=== PATIENT | female | born 1985 | race Caucasian/White ===

== ENCOUNTER 2017-12-18 20:32 | Emergency (ER) | payer BC ==
[2017-12-18] MEDS ORDERED: Ondansetron 4 MG/2 ML SDV IVPUSH ONE (21:11)
[2017-12-18] MEDS ORDERED: Sodium Chloride 0.9% 1,000 ML IV ONE (21:11)
--- NOTE | 2017-12-18 21:12 | EDM.PDOC ---
ED HPI GENERAL MEDICAL PROBLEM - General Chief Complaint: Genitourinary Problem Stated Complaint: BACK PAIN VOMMITTING POSSIBLE KIDNEY INFECTION Time Seen by Provider: 12/18/17 21:00 Source of Information: Reports: Patient History Limitations: Reports: No Limitations - History of Present Illness INITIAL COMMENTS - FREE TEXT/NARRATIVE: Monica is a 32yo female who presents tonight with low back pain, chills, subjective fevers, nausea. LBP started 4 days ago, today she has been nauseated and vomited x 2. She has had urinary frequency and pressure/pain sensation to low abdomen over her bladder area. She has had loose stools today. She is prone to "kidney infections" and has been hospitalized for these in the past. She is concerned that she may have a kidney infection again and came to ER tonight. She feels "so dry" and "dehydrated". She has hx of depression, stable and medicated. No other medical history. Abdominal surgeries include "tummy tuck". NKDA Onset: Gradual Duration: Day(s): (4), Getting Worse Location: Reports: Abdomen Improves with: Reports: None Worsens with: Reports: None Associated Symptoms: Reports: Fever/Chills, Headaches, Loss of Appetite, Nausea/ Vomiting. 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: Acetaminophen Back Pain Score (Numeric/FACES): 6 - Related Data Allergies Allergy/AdvReac Type Severity Reaction Status Date / Time No Known Allergies Allergy Verified 12/18/17 20:43 Home Meds: Home Meds FLUoxetine [PROzac] 60 mg PO DAILY 12/18/17 [History] Past Medical History Gastrointestinal History: Reports: Other (See Below) Other Gastrointestinal History: tummy tuck - Past Surgical History HEENT Surgical History: Reports: Oral Surgery, Tonsillectomy GI Surgical History: Reports: Other (See Below) Other GI Surgeries/Procedures: hemmoroid surgery Social & Family History - Tobacco Use Smoking Status *Q: Never Smoker - Caffeine Use Caffeine Use: Reports: Coffee, Energy Drinks, Soda, Tea - Recreational Drug Use Recreational Drug Use: No ED ROS GENERAL - Review of Systems Review Of Systems: See Below Constitutional: Reports: Chills, Fatigue, Diaphoresis HEENT: Reports: No Symptoms Respiratory: Reports: No Symptoms. Denies: Shortness of Breath, Cough Cardiovascular: Reports: No Symptoms. Denies: Chest Pain, Palpitations GI/Abdominal: Reports: Abdominal Pain (lower), Diarrhea (today), Nausea, Vomiting (x 2 today). Denies: Black Stool, Bloody Stool, Constipation : Reports: Flank Pain (bilateral - "I can't really tell if it is on one side") , Frequency, Other (LMP: unknown as she got her nexplanon out 2 months ago, spotting intermittently with nexplanon in. Not sexually active). Denies: Discharge, Dysuria, Hematuria, Urgency, Urinary Retention Musculoskeletal: Reports: Back Pain Neurological: Reports: Headache. Denies: Confusion, Dizziness, Numbness, Tingling Psychiatric: Reports: No Symptoms ED EXAM, RENAL/ - Physical Exam Exam: See Below Exam Limited By: No Limitations General Appearance: Alert, WD/WN, No Apparent Distress Eye Exam: Bilateral Eye: EOMI, PERRL Ears: Normal External Exam, Hearing Grossly Normal Nose: Normal Inspection Throat/Mouth: Normal Inspection, Normal Lips, Normal Teeth, Normal Voice, No Airway Compromise Head: Atraumatic, Normocephalic Neck: Normal Inspection Respiratory/Chest: No Respiratory Distress, Lungs Clear, Normal Breath Sounds Cardiovascular: Regular Rate, Rhythm, No Edema GI/Abdominal: Normal Bowel Sounds, Soft, Tender (mild to lower abdomen). No: Guarding, Rigid, Rebound (Female) Exam: Deferred Rectal (Female) Exam: Deferred Back Exam: No: CVA Tenderness (L), CVA Tenderness (R) Extremities: Normal Inspection, No Pedal Edema, Normal Capillary Refill Neurological: Alert, Oriented, CN II-XII Intact, Normal Cognition Psychiatric: Normal Affect, Normal Mood Skin Exam: Warm, Dry, Intact Course - Vital Signs Last Recorded V/S: Last Vital Signs Temp 98.7 F 12/18/17 20:40 Pulse 82 12/18/17 20:40 Resp 20 12/18/17 20:40 BP 136/75 12/18/17 20:40 Pulse Ox 100 12/18/17 20:40 - Orders/Labs/Meds Orders: Active Orders 24 hr Category Date Time Status UA W/MICROSCOPIC [URIN] Stat Lab 12/18/17 20:35 Ordered Labs: Laboratory Tests 06/29/18 06/29/18 06/29/18 Range/Units 20:35 21:20 21:20 WBC 12.38 H (3.98-10.04) K/mm3 RBC 4.63 (3.98-5.22) M/mm3 Hgb 13.9 (11.2-15.7) gm/L Hct 41.9 (34.1-44.9) % MCV 90.5 (79.4-94.8) fl MCH 30.0 (25.6-32.2) pg MCHC 33.2 (32.2-35.5) g/dl RDW Std Deviation 42.8 (36.4-46.3) fL Plt Count 308 (182-369) K/mm3 MPV 10.9 (9.4-12.3) fl Neut % (Auto) 63.3 (34.0-71.1) % Lymph % (Auto) 22.5 (19.3-51.7) % [place] % (Auto) 10.3 (4.7-12.5) % Eos % (Auto) 3.5 (0.7-5.8) Baso % (Auto) 0.2 (0.1-1.2) % Neut # (Auto) 7.82 H (1.56-6.13) K/mm3 Lymph # (Auto) 2.79 (1.18-3.74) K/mm3 [place] # (Auto) 1.28 H (0.24-0.36) K/mm3 Eos # (Auto) 0.43 H (0.04-0.36) K/mm3 Baso # (Auto) 0.03 (0.01-0.08) K/mm3 Sodium 138 (136-145) mEq/L Potassium 4.2 (3.5-5.1) mEq/L Chloride 103 (98-107) mEq/L Carbon Dioxide 27 (21-32) mEq/L Anion Gap 12.2 (5-15) BUN 10 (7-18) mg/dL Creatinine 0.8 (0.55-1.02) mg/dL Est Cr Clr Drug Dosing 99.99 mL/min Estimated GFR (MDRD) > 60 (>60) mL/min BUN/Creatinine Ratio 12.5 L (14-18) Glucose 91 (74-106) mg/dL Calcium 9.0 (8.5-10.1) mg/dL Total Bilirubin 0.3 (0.2-1.0) mg/dL AST 21 (15-37) U/L ALT 32 (14-59) U/L Alkaline Phosphatase 73 (46-116) U/L Total Protein 7.5 (6.4-8.2) g/dl Albumin 3.7 (3.4-5.0) g/dl Globulin 3.8 gm/dL Albumin/Globulin Ratio 1.0 (1-2) Urine Color Light yellow (Yellow) Urine Appearance Clear (Clear) Urine pH 7.5 (5.0-8.0) Ur Specific [place] 1.015 (1.005-1.030) Urine Protein Negative (Negative) Urine Glucose (UA) Negative (Negative) Urine Ketones Negative (Negative) Urine Occult Blood Negative (Negative) Urine Nitrite Negative (Negative) Urine Bilirubin Negative (Negative) Urine Urobilinogen 0.2 (0.2-1.0) Ur Leukocyte Esterase Negative (Negative) Urine RBC Not seen (0-5) /hpf Urine WBC 0-5 (0-5) /hpf Ur Epithelial Cells 0-5 (0-5) /hpf Urine Bacteria Not seen (FEW) /hpf Urine Mucus Not seen (FEW) /hpf Meds: Medications Discontinued Medications Generic Name Dose Route Start Last Admin Trade Name Sandroq PRN Reason Stop Dose Admin Sodium Chloride 1,000 mls @ 999 mls/hr 12/18/17 21:11 12/18/17 21:18 Normal Saline IV 12/18/17 22:11 999 mls/hr ONETIME ONE Administration Ondansetron HCl 4 mg 12/18/17 21:11 12/18/17 21:18 Zofran IVPUSH 12/18/17 21:12 4 mg ONETIME ONE Administration - Re-Assessments/Exams Free Text/Narrative Re-Assessment/Exam: 12/18/17 21:11 Patient states she feels so dry--- will order 1LNS IV, zofran IV for nausea. Awaiting labs. 12/18/17 21:43 UA unremarkable. Free Text/Narrative Re-Assessment/Exam: 12/18/17 22:16 Labs essentially normal. IVF almost infused, zofran relieved the nausea. Reassurance that this is not UTI/kidney infection. See DC instructions for further details. Departure - Departure Time of Disposition: 22:17 Disposition: Home, Self-Care 01 Condition: Good Clinical Impression: Nausea & vomiting Qualifiers: Vomiting type: unspecified Vomiting Intractability: non-intractable Qualified Code(s): R11.2 - Nausea with vomiting, unspecified - Discharge Information Instructions: Nausea and Vomiting, Adult Referrals: PCP,Not In Area [Primary Care Provider] - Forms: ED Department Discharge Additional Instructions: Your urinalysis and lab work were essentially normal today. You received one liter of IV fluids and IV zofran for nausea Push fluids Zofran every 4 hours as needed for nausea- you have this at home Pepcid twice a day or tums/rolaids every few hours to settle stomach [employer] Return if symptoms worsen, fever, vomiting despite zofran, other ?'s or concerns.
== END 2017-12-18 22:30 | disposition home or self-care (01) ==
LOC: JD.ED 20:32
DX: R11.2 Nausea with vomiting, unspecified (principal); M54.5 Low back pain; R50.9 Fever, unspecified; R51 Headache; Z79.899 Other long term (current) drug therapy
CPT/HCPCS: 36415; 80053; 81001; 85025; 96361; 96374; 99283; J2405; J7040; 99284